=== PATIENT | female | born 1955 | race Caucasian/White ===

== ENCOUNTER → 2019-10-05 | Outpatient (CLI) | payer MEDICAID ==
[~2019-10-05] MED LIST: ACYC200C PO; AMLO10TA80 PO; CALC-25 PO; DICL75TA5 PO; ERGO2000 PO; FOLI-43 PO; METH25VI63 IJ; VENL75CA55 PO
== END | disposition home or self-care (01) ==
LOC: LAB 11:20
PROVIDERS: ATTEND Orthopaedic Surgery
DX: Z01.812 Encounter for preprocedural laboratory examination (principal); Z20.828 Contact with and (suspected) exposure to other viral communicable diseases; M05.762 Rheumatoid arthritis with rheumatoid factor of left knee without organ or systems involvement
CPT/HCPCS: C9803; U0003

== ENCOUNTER 2019-10-08 11:55 | Inpatient (IN) | payer MEDICAID ==
[~2019-10-08] VITALS: Ht 157.5 cm; Wt 82.6 kg
[2019-10-08] MEDS ORDERED: LACTATED RINGERS 1,000 ML IV SCH (12:00)
[2019-10-08] MEDS ORDERED: GENTAMICIN SULF 40MG/ML 2ML VIAL ONE (12:59)
[2019-10-08] MEDS ORDERED: BUPIVACAINE HCL/EPINEPHRINE/PF 0.5%/0.0005 10ML ONE ×2 (12:59→16:11)
[2019-10-08] MEDS ORDERED: METHYLENE BLUE 50 MG/10 ML AMP IV ONE (12:59)
[2019-10-08] MEDS ORDERED: NORMAL SALINE 0.9% 10 ML SYR ONE (13:00)
[2019-10-08] MEDS ORDERED: VANCOMYCIN HCL 1 GM/VIAL ONE (13:00)
[2019-10-08] MEDS ORDERED: BACITRACIN 50,000 UNITS/VIAL ONE (13:00)
[2019-10-08] MEDS ORDERED: EPINEPHRINE 1:1000 1 MG/ML AMP ONE (13:00)
[2019-10-08 13:25] LABS: CLARITY URINE CLEAR (CLEAR); COLOR URINE DK YELLOW (YELLOW); KETONES URINE NEGATIVE (NEGATIVE); LEUKOCYTE ESTERASE URINE 1+ (NEGATIVE); NITRITE URINE NEGATIVE (NEGATIVE); OCCULT BLOOD URINE NEGATIVE (NEGATIVE); PROTEIN URINE NEGATIVE (NEGATIVE); SPECIFIC GRAVITY URINE 1.021 (1.005-1.030)
[2019-10-08] MEDS ORDERED: TRANEXAMIC ACID 1,000 MG in SODIUM CHLORIDE 0.9% 100 ML IV ONE (13:30)
[2019-10-08] MEDS ORDERED: CLINDAMYCIN 900 MG PREMIX 50 ML IV ONE (13:36)
[2019-10-08] MEDS ORDERED: MORPHINE SULFATE/PF 1MG/ML 10ML AMP ONE (14:01)
[2019-10-08] MEDS ORDERED: ROPIVACAINE HCL 10MG/ML 20 ML VIAL EPI ONE (14:02)
[2019-10-08] MEDS ORDERED: ROCURONIUM BROMIDE 10MG/ML VIAL 5ML IV ONE (14:05)
[2019-10-08] MEDS ORDERED: FENTANYL CITRATE/PF 50MCG/ML 2ML VIAL ONE (14:05)
[2019-10-08] MEDS ORDERED: EPHEDRINE SULFATE 50MG/ML VIAL ONE (14:05)
[2019-10-08] MEDS ORDERED: SUCCINYLCHOLINE CHLORIDE 200MG/10ML IV ONE (14:05)
[2019-10-08] MEDS ORDERED: NEOSTIGMINE METHYLSULFATE 1MG/ML 10 ML VIAL ONE (14:05)
[2019-10-08] MEDS ORDERED: METOCLOPRAMIDE HCL 10MG/2ML VIAL ONE (14:05)
[2019-10-08] MEDS ORDERED: ONDANSETRON HCL 4MG/2ML INJ ONE (14:05)
[2019-10-08] MEDS ORDERED: CEFAZOLIN SODIUM 1000MG/VIAL ONE (14:05)
[2019-10-08] MEDS ORDERED: SODIUM CHLORIDE 0.9% 10ML VIAL ONE (14:05)
[2019-10-08] MEDS ORDERED: MIDAZOLAM HCL 2 MG/2 ML VIAL ONE (14:05)
[2019-10-08] MEDS ORDERED: DEXAMETHASONE 4MG/ML 1ML VIAL ONE (14:05)
[2019-10-08] MEDS ORDERED: PHENYLEPHRINE HCL 10 MG/ML 1ML (IV VIAL) IV ONE (14:05)
[2019-10-08] MEDS ORDERED: GLYCOPYRROLATE 0.2 MG/ML 2ML VIAL ONE (14:05)
[2019-10-08] MEDS ORDERED: PROPOFOL 200MG/20ML VIAL IV ONE (14:05)
[2019-10-08] MEDS ORDERED: ALBUTEROL 90MCG/PUFF 17GM INHALER INH ONE (14:24)
[2019-10-08] MEDS ORDERED: ALBUMIN HUMAN 12.5G/250ML (5%) IV ONE (14:55)
[2019-10-08] MEDS ORDERED: ONDANSETRON HCL 4MG/2ML INJ IV PRN ×2 (16:45→19:00)
[2019-10-08] MEDS ORDERED: MEPERIDINE HCL/PF 25MG/ML CPJ IV PRN (16:45)
[2019-10-08] MEDS ORDERED: LABETALOL 5MG/ML SYR 20 MG/4 ML SYRINGE IV PRN (16:45)
[2019-10-08] MEDS ORDERED: HYDROMORPHONE HCL/PF 2MG/ML CPJ IV PRN (16:45)
[2019-10-08] MEDS ORDERED: HYDROMORPHONE PCA 10MG/50ML IV PRN (17:57)
[2019-10-08] MEDS ORDERED: ONDANSETRON INJ IV PRN (17:57)
[2019-10-08] MEDS ORDERED: DIPHENHYDRAMINE INJ IV PRN (17:57)
[2019-10-08] MEDS ORDERED: NALOXONE INJ IV PRN (17:58)
[2019-10-08] MEDS ORDERED: MAGNESIUM HYDROXIDE 400MG/5ML 30ML UDC PO PRN (19:00)
[2019-10-08] MEDS ORDERED: HYDROCODONE/ACETAMINOPHEN 5/325MG TABLET PO PRN (19:00)
[2019-10-08] MEDS ORDERED: ACETAMINOPHEN 325MG TABLET PO PRN (19:00)
[2019-10-08] MEDS ORDERED: ZOLPIDEM TARTRATE 5MG TABLET PO PRN (19:00)
[2019-10-08 20:00] VITALS: BP 130/70
[2019-10-08] MEDS: CLINDAMYCIN 900 MG in DEXTROSE 5% WATER 50 ML IV SCH (21:59)
[2019-10-09] MEDS: CLINDAMYCIN 900 MG in DEXTROSE 5% WATER 50 ML IV SCH (05:51)
[2019-10-09 07:26] LABS: HEMATOCRIT. 31.6 % (36.0-48.0); HEMOGLOBIN. 10.2 g/dL (12.0-16.0); MEAN CORPUSCULAR HEMOGLOBIN 25.1 pg (28.0-32.0); MEAN CORPUSCULAR VOLUME 78.1 fL (81.0-99.0); MEAN PLATELET VOLUME 8.8 fl (7.4-10.4); PLATELET 225 x1000/uL (130-400); RED BLOOD CELL COUNT 4.05 mill/uL (4.2-5.4); RED CELL DISTRIBUTION WIDTH 18.5 % (11.6-14.6)
[2019-10-09 07:45] LABS: CHLORIDE 108 mEq/L (98-107)
[2019-10-09 08:00] VITALS: BP 108/66
[2019-10-09] MEDS: DOCUSATE SODIUM 100MG CAPSULE PO SCH ×2 (09:11→16:19)
[2019-10-09] MEDS: ENOXAPARIN 30MG/0.3ML SYR SUBCUT SCH ×2 (09:11→20:25)
[2019-10-09 12:00] VITALS: BP 123/61
[2019-10-09 16:00] VITALS: BP 140/68
[2019-10-09] MEDS: VENLAFAXINE HCL 37.5MG TABLET PO SCH (16:19)
[2019-10-09] MEDS: HYDROCODONE/ACETAMINOPHEN 5/325MG TABLET PO PRN (16:47)
[2019-10-10] VITALS: BP 128/58
[2019-10-10] MEDS: HYDROCODONE/ACETAMINOPHEN 5/325MG TABLET PO PRN ×2 (02:05→09:33)
[2019-10-10 04:00] VITALS: BP 131/74
[2019-10-10 08:00] VITALS: BP 132/70
[2019-10-10] MEDS: VENLAFAXINE HCL 37.5MG TABLET PO SCH (08:44)
[2019-10-10] MEDS: DOCUSATE SODIUM 100MG CAPSULE PO SCH (08:44)
[2019-10-10] MEDS: ENOXAPARIN 30MG/0.3ML SYR SUBCUT SCH (08:44)
[2019-10-10 08:59] LABS: PLATELET ESTIMATE NORMAL
[2019-10-10 12:00] VITALS: BP 144/68
[2019-10-10 12:13] VITALS: BP 144/68
[2019-10-11] MEDS ORDERED: AMLODIPINE 10MG TABLET PO SCH (09:00)
[2019-10-11] MEDS ORDERED: FOLIC ACID 1MG TABLET PO SCH (09:00)
== END 2019-10-10 13:02 | disposition home health service (06) | DRG 302 ==
LOC: OR 11:55 → 6EST 19:37
PROVIDERS: ADMIT Orthopaedic Surgery; ATTEND Orthopaedic Surgery
PROC: 0SRD0J9 Replacement of Left Knee Joint with Synthetic Substitute, Cemented, Open Approach (ICD-10-PCS; principal; 2019-10-08)
DX: M17.12 Unilateral primary osteoarthritis, left knee (principal); D72.829 Elevated white blood cell count, unspecified; E78.5 Hyperlipidemia, unspecified; F32.9 Major depressive disorder, single episode, unspecified; I10 Essential (primary) hypertension; I73.00 Raynaud's syndrome without gangrene; L80 Vitiligo; M05.9 Rheumatoid arthritis with rheumatoid factor, unspecified; K21.9 Gastro-esophageal reflux disease without esophagitis; E66.9 Obesity, unspecified; Z96.651 Presence of right artificial knee joint; M65.9 Synovitis and tenosynovitis, unspecified; Z82.49 Family history of ischemic heart disease and other diseases of the circulatory system; Z90.49 Acquired absence of other specified parts of digestive tract; Z88.0 Allergy status to penicillin; Z68.33 Body mass index [BMI] 33.0-33.9, adult; Z79.899 Other long term (current) drug therapy
CPT/HCPCS: 36415; 73560; 80048; 81003; 85025; 86850; 86900; 88305; 88311; 93005; 97110; 97116; 97162; 97166; C1713; C1776; J0171; J0330; J0690; J1100; J1170; J1580; J1650; J2175; J2250; J2274; J2370; J2405; J2704; J2710; J2765; J2795; J3010; J3370; J3490; J7050; J7060; L1830; P9041; Q9968